=== PATIENT | male | born 1995 | race Two or more races ===

== ENCOUNTER 2016-09-11 14:02 | Emergency (ER) | payer OTHER ==
[~2016-09-11] VITALS: Ht 167.6 cm; Wt 72.6 kg
[2016-09-11 15:03] VITALS: BP 145/87
== END 2016-09-11 15:07 ==
LOC: ER 14:05
DX: S60.511A Abrasion of right hand, initial encounter (principal); K42.0 Umbilical hernia with obstruction, without gangrene; X58.XXXA Exposure to other specified factors, initial encounter; Y93.89 Activity, other specified; Y92.89 Other specified places as the place of occurrence of the external cause; Y99.8 Other external cause status
CPT/HCPCS: 99283; A4606; Z7610